=== PATIENT | female | born 1995 | race Native Hawaiian/Other Pacific Islander ===

== ENCOUNTER 2016-11-16 11:38 | Emergency (ER) | payer SELFPAY ==
[~2016-11-16] VITALS: Ht 167.6 cm
[~2016-11-16 11:38] MED LIST: FLONASE 0.05% 121 EA NAS; KEFLEX500 MG PO; MEDROL DOSEPAK4 MG PO; MOTRIN600 MG PO; MOTRIN800 MG PO; PREDNICOT20 MG PO; ZITHROMAX Z PA250 MG PO
[2016-11-16] MEDS ORDERED: PREDNISONE10 MG PO (12:17)
== END 2016-11-16 12:30 | disposition home or self-care (01) ==
LOC: ED 11:38
DX: L25.9 Unspecified contact dermatitis, unspecified cause (principal); Z91.013 Allergy to seafood